=== PATIENT | female | born 1965 | race Caucasian/White ===

== ENCOUNTER 2020-01-10 10:12 | Outpatient (REF) | payer MEDICARE, MEDICAID, SELFPAY ==
[2020-01-10 23:50] LABS: Glucose Urine UA 100 MG/DL (NEG); Leukocyte Esterase Urine TRACE (NEG); Nitrite Urine POS (NEG); Specific Gravity - Urine >= 1.030 (1.005-1.025); Urine Blood NEG (NEG); Urine Ketones 5 MG/DL (NEG); Urine Protein 1+ MG/DL (NEG-TRACE)
[2020-01-11] LABS: Appearance Urine CLOUDY; Color Urine ORANGE
[2020-01-11 00:01] LABS: Bacteria Urine 4+ /LPF; Calcium Oxalate Crystals Urine 4+ /LPF; Mucus Urine 2+ /LPF; Squamous Epithelial Cell Urine 2+ /LPF
== END 2020-01-10 10:13 | disposition home or self-care (01) ==
LOC: HO.LAB 10:12
PROVIDERS: Visit Provider Internal Medicine
DX: R30.0 Dysuria (principal)
CPT/HCPCS: 81001; 81003; 87086; 87088; 87186

== ENCOUNTER 2020-03-22 12:10 | Outpatient (REF) | payer MEDICARE, MEDICAID, SELFPAY | END 2020-03-22 12:11 | disposition home or self-care (01) | LOC: HO.HOSX 12:10 | PROVIDERS: Visit Provider Orthopaedic Surgery | DX: Z13.89 Encounter for screening for other disorder (principal) ==

== ENCOUNTER 2020-03-26 10:45 | Outpatient (REF) | payer MEDICARE, MEDICAID, SELFPAY ==
--- NOTE | ~2020-03-26 | XR_ITS ---
EXAMINATION: XR KNEE STANDING, BILATERAL XR KNEE, RIGHT CLINICAL INFORMATION: Pain in right knee. COMPARISON: None TECHNIQUE: AP bilateral knee standing. Right knee 2 views. FINDINGS: AP KNEES STANDING: There is a moderate right knee genu varus deformity with severe loss of medial compartment joint space. There is moderate loss of left knee medial joint space with periarticular spurring. No loose bodies or bony erosive changes seen. There is loss of patellofemoral compartment joint space with inferior and superior spurring and anterior suprapatellar enthesophyte. No abnormal joint effusion seen. The soft tissues are normal. XR/XR knee RT 2V IMPRESSION: Severe medial compartment right knee and moderate medial compartment left knee arthritic changes with periarticular spurring. Degenerative spurring and arthritic changes patellofemoral compartment right knee without joint effusion. Genu varus deformity right knee.
--- NOTE | ~2020-03-26 | XR_ITS ---
EXAMINATION: XR KNEE STANDING, BILATERAL XR KNEE, RIGHT CLINICAL INFORMATION: Pain in right knee. COMPARISON: None TECHNIQUE: AP bilateral knee standing. Right knee 2 views. FINDINGS: AP KNEES STANDING: There is a moderate right knee genu varus deformity with severe loss of medial compartment joint space. There is moderate loss of left knee medial joint space with periarticular spurring. No loose bodies or bony erosive changes seen. There is loss of patellofemoral compartment joint space with inferior and superior spurring and anterior suprapatellar enthesophyte. No abnormal joint effusion seen. The soft tissues are normal. XR/XR knee standing BI IMPRESSION: Severe medial compartment right knee and moderate medial compartment left knee arthritic changes with periarticular spurring. Degenerative spurring and arthritic changes patellofemoral compartment right knee without joint effusion. Genu varus deformity right knee.
== END 2020-03-26 10:46 | disposition home or self-care (01) ==
LOC: HO.XRAY 10:45
PROVIDERS: PCP Internal Medicine; Visit Provider Orthopaedic Surgery
DX: M25.561 Pain in right knee (principal); M25.562 Pain in left knee; M17.0 Bilateral primary osteoarthritis of knee
CPT/HCPCS: 73560; 73565; 99202

== ENCOUNTER → 2020-04-20 09:00 | Outpatient (BNVA) | payer MEDICARE, MEDICAID, SELFPAY | PROVIDERS: Visit Provider Orthopaedic Surgery | DX: M17.0 Bilateral primary osteoarthritis of knee (principal) | CPT/HCPCS: 20610; 99212; J7318 ==

== ENCOUNTER → 2020-05-10 10:03 | Outpatient (BNVA) | payer MEDICARE, MEDICAID, SELFPAY | PROVIDERS: PCP Internal Medicine; Visit Provider Orthopaedic Surgery ==

== ENCOUNTER → 2020-09-01 10:31 | Outpatient (BNVA) | payer MEDICARE, MEDICAID, SELFPAY | PROVIDERS: Visit Provider Orthopaedic Surgery | DX: M17.0 Bilateral primary osteoarthritis of knee (principal) | CPT/HCPCS: 99212 ==

== ENCOUNTER 2021-03-04 12:35 | Emergency (ER) | payer OTHER, SELFPAY ==
--- NOTE | ~2021-03-04 | CT_ITS ---
EXAMINATION: CT HEAD WITHOUT CONTRAST CLINICAL INFORMATION: Left facial weakness since 3:00 PM yesterday COMPARISON: MRI brain 09/26/2018. TECHNIQUE: Contiguous axial imaging was performed from the skull base to vertex without intravenous administration of contrast. This CT examination was performed using dose optimization techniques as appropriate, variously including the following: *Automated exposure control *Adjustment of mA and/or kV according to patient size (this includes techniques or standardized protocols for targeted exams where dose is matched to indication/reason for exam; i.e. extremities or head) *Use of iterative reconstruction technique DLP: 651 mGy-cm FINDINGS: There is no evidence of acute intracranial hemorrhage or territorial infarction. No abnormal mass effect or midline shift is seen. Gu to white matter differentiation is well preserved. No extra-axial fluid collections are identified. The lateral ventricles are symmetrical but enlarged. There is diffuse periventricular hypodensity in both cerebral hemispheres without mass effect. Bone windows reveal no calvarial abnormality. There is no scalp soft tissue abnormality. There is diffuse mucoperiosteal thickening bilateral maxillary sinuses. Rest the paranasal sinuses and left mastoid sinus is clear. There is mild degree of periosteal thickening right mastoid sinus. No calvarial fracture or scalp abnormality seen. CT/CT head/brain wo con IMPRESSION: No acute intracranial process seen. No major change since the previous MRI brain 10/06/[address] brain 10/01/2017
[2021-03-04 12:50] VITALS: BP 114/72; PULSE 91; RESP 14; TEMP 36.8; O2SAT 97
[2021-03-04 13:00] VITALS: BP 116/80; BP 126/64; PULSE 95; PULSE 99; RESP 14; TEMP 36.8; O2SAT 95; O2SAT 97; BMI 26.5
--- NOTE | 2021-03-04 13:06 | ED.NEUROSD ---
HPI - Neuro Symptoms/Deficit General Chief Complaint: Neuro Symptoms/Deficit Stated Complaint: stroke Time Seen by Provider: 03/04/21 12:50 Source: EMS Mode of arrival: EMS Limitations: no limitations History of Present Illness HPI Narrative: 55-year-old female with a history of multiple sclerosis on interferon SQ QOD, anxiety, depression here with complaints of left sided facial droop since 3pm yesterday with inability to close her left eye. H/o MS but denies any recent flares. Followed by neurology (brandan). No baseline deficits or weakness. Uses walker or wheelchair depending on distance of ambulation. Patient tells me she recently recovered from a cold which she reports was runny nose and cough. She denies any recent travel, tick bites, history of Lyme or herpes. Related Data Home Medications Medication Instructions Recorded Confirmed dextroamphetamine-amphetamine PO 03/26/20 [Adderall] Previous Rx's Medication Instructions Recorded prednisone 20 mg tablet 60 mg PO DAILY #21 tab 03/04/21 valacyclovir 1 gram tablet 1,000 mg PO Q8H 7 Days #21 tab 03/04/21 (Valtrex) Allergies Allergy/AdvReac Type Severity Reaction Status Date / Time acetaminophen [Percocet] Allergy Unknown Unknown Verified 09/01/20 10:39 Erythromycin Allergy Unknown Unknown Verified 09/01/20 10:39 droperidol [From Inapsine] AdvReac Mild MOOD CHANGE Verified 09/01/20 10:39 erythromycin base AdvReac Mild NAUSEA Verified 09/01/20 10:39 [Erythromycin Base] oxycodone [From Percocet] AdvReac Mild VOMITING Verified 09/01/20 10:39 Review of Systems Review of Systems: Yes all other systems are reviewed and are negative Constitutional: Constitutional: Reports no additional constitutional complaints, Denies body ache(s), Denies chills, Denies fever(s), Denies headache(s) and Denies weakness Eyes: Eyes: Reports no additional eye complaints and Denies change in vision ENT: Reports system reviewed and no additional complaints, except as documented, Denies dizziness, Denies headache(s), Denies nasal congestion, Denies nasal discharge and Denies neck pain Cardiovascular: Cardiovascular: Reports no additional cardiovascular complaints, Denies chest pain, Denies leg edema and Denies dyspnea Respiratory: Respiratory: Reports no additional respiratory complaints, Denies cough and Denies dyspnea Gastrointestinal: Gastrointestinal: Reports no additional gastrointestinal complaints, Denies abdominal pain, Denies diarrhea, Denies nausea and Denies vomiting Genitourinary: Genitourinary: Reports no additional female genitourinary complaints and Denies urinary incontinence Musculoskeletal: Musculoskeletal: Reports no additional musculoskeletal complaints, Denies back pain, Denies arthralgias, Denies joint swelling, Denies neck pain, Denies numbness and Denies tingling Integumentary/Breasts: Skin/Breast: Reports system reviewed and no additional complaints, except as docu and Denies rash Neurologic: Reports system reviewed and no additional complaints, except as documented, Denies Abnormal speech present, Denies dizziness, Denies headache(s), Denies numbness, Denies tingling and Denies weakness Comments: +facial weakness PMFSH Past Medical History Attestation statement: The following information was validated with the patient. Source: old records reviewed and nursing notes reviewed Medical History Ovarian tumor Social History Social History Alcohol intake: never Patient Tobacco Use Status: Never used Tobacco Use of substances other than those prescribed or required for medical reasons: No Advance Directives: No Advance Directives Information Provided: No Current occupational status: disabled Current occupation: Right Handed Physical Exam Vital Signs: Vital Signs: Last Vital Signs Temp 98.3 F 03/04/21 13:00 Pulse 95 03/04/21 13:00 Resp 14 03/04/21 13:00 BP 126/64 03/04/21 13:00 Pulse Ox 97 03/04/21 13:00 BMI result Body Mass Index 26.5 Const: General: cooperative, healthy appearing, comfortable and no acute distress Orientation/consciousness: patient oriented x3 Limitations: no limitations HENMT: Head: Yes normal to inspection Ears: hearing grossly normal bilaterally and TM's normal bilaterally General nose exam: Normal external nose present Face and sinus: Yes normal facial exam Mouth: Normal oral and palatal mucosa present Throat: Yes posterior oropharynx normal, Yes tonsils normal and Yes uvula midline Eyes: General: appearance normal, both eyes and all related structures Pupils: Equal, round and reactive pupils present Neck: Neck: Yes normal visual inspection, Yes full ROM, Yes no lymphadenopathy and Yes no meningeal signs Chest: Chest palpation & inspection: normal inspection of the chest Resp: Effort & Inspection: normal respiratory effort Auscultation: clear to auscultation bilaterally Cardio: Rate: regular rate Rhythm: regular rhythm Peripheral pulses: Peripheral pulses 2+ throughout GI: Inspection: Yes normal to inspection Palpation (GI): Soft to palpation and nontender Auscultation: normal bowel sounds Back/Spine/Pelvis: Thoracic/Lumbar Spine: thoracic and lumbar spine normal to inspection Skin: General skin exam: no rashes or lesions noted Neuro: Other: UE 5/5 strength RLE/LLE 5/5 strength Left facial droop with inability to completely close left eye or raise eyebrow Speech is clear General: patient oriented x3, no meningeal signs, normal sensation to monofilament and Unable to assess gait Cranial nerves: Yes Equal, round and reactive pupils present, Yes Bilaterally intact EOM present and Yes Nystagmus not present Cognition (Neuro): normal cognition Speech: No Abnormal speech present Gait exam (Neuro): Unable to assess gait Sensory Exam: Normal double simultaneous stimulation for sensation Coordination: [id number] test normal Extrem: General: Yes normal to inspection Course Course Course Narrative: 55-year-old female with a history of multiple sclerosis here with reports of left-sided facial droop since 15:00 yesterday. On exam patient has left sided facial weakness with inability to close left eye and absent facial wrinkle. C/w with bells palsy. Speech is normal. UE/LE strength/sensation normal. Will check labs, CT head 1530-CT head negative, labs are unremarkable. 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 Typically the treatment of this would involve antivirals and prednisone. However as the patient is on interferon every other day I am not sure if this is contraindicated. I will discuss this with her neurologist 1600-discussed the patient with her neurologist (Brandan). It is okay to give both prednisone and acyclovir with the patient's interferon. Reviewed worrisome signs and symptoms of when to return to the emergency department. Comfortable plan for discharge home MDM - Neuro Symptoms/Deficit Medical Records Attestation: I reviewed the patient's medical records. Lab Data Attestation: I reviewed the patient's lab results. Result diagrams: 03/04/21 14:40 03/04/21 14:40 Labs: Lab Results 03/04/21 03/04/21 03/04/21 Range/Units 14:37 14:40 14:40 WBC 5.8 (4.8-10.8) X10*3/uL RBC 4.04 L (4.20-5.50) X10*6/uL Hgb 12.4 (12.0-16.0) g/dl Hct 38.6 (37.0-47.0) % MCV 95.5 (80.0-98.0) fL MCH 30.7 (27.0-33.0) pg MCHC 32.1 (31.0-35.0) g/dl RDW 12.2 (11.0-16.0) % Plt Count 222 (160-400) X10*3/uL MPV 9.3 L (9.4-12.3) fL Immature Gran % (Auto) 0.7 H (0.0-0.4) % Neut % (Auto) 70.9 (45-73) % Lymph % (Auto) 21.7 (20-40) % [place] % (Auto) 5.0 (2-11) % Eos % (Auto) 1.2 (0-4) % Baso % (Auto) 0.5 (0-2) % Lymph # (Auto) 1.3 (1.2-4.9) X10*3/uL [place] # (Auto) 0.3 (0.1-1.2) X10*3/uL Eos # (Auto) 0.1 (0.0-0.4) X10*3/uL Baso # (Auto) 0.0 (0.0-0.2) X10*3/uL Abs Immat Gran (auto) 0.04 H (0.00-0.03) X10*3/uL Absolute Neuts (auto) 4.1 (2.0-8.3) x10*3/uL Absolute Nucleated RBC 0.000 (0.0-0.012) X10*3/uL Nucleated RBC % (auto) 0.0 (0.0-0.2) /100WBC Sodium 138 (135-145) mmol/L Potassium 4.5 (3.3-5.1) mmol/L Chloride 104 (96-108) mmol/L Carbon Dioxide 24 (22-29) mmol/L Anion Gap 15 (12-20) BUN 11 (9-16) mg/dL Creatinine 0.77 (0.5-1.4) mg/dL Estim Creat Clear Calc 78.2 Estimated GFR > 60 Random Glucose 88 (60-115) mg/dL Calcium 9.2 (8.4-10.2) mg/dL Magnesium 2.3 (1.6-2.6) mg/dL Total Bilirubin 0.4 (0.0-1.0) mg/dL Direct Bilirubin 0.2 (0.0-0.5) mg/dL AST 26 (5-31) U/L ALT 16 (0-31) U/L Alkaline Phosphatase 111 (39-117) U/L Total Protein 7.5 (6.5-8.0) g/dL Albumin 3.6 (3.5-5.0) g/dL COVID-19 ([facility]) Negative (Negative) COVID-19 Clin Com See Note Imaging Data CT scan - head: Attestation: I personally reviewed and interpreted this imaging study as follows: Radiologist's impression: FINDINGS: There is no evidence of acute intracranial hemorrhage or territorial infarction. No abnormal mass effect or midline shift is seen. Gu to white matter differentiation is well preserved. No extra-axial fluid collections are identified. The lateral ventricles are symmetrical but enlarged. There is diffuse periventricular hypodensity in both cerebral hemispheres without mass effect. Bone windows reveal no calvarial abnormality. There is no scalp soft tissue abnormality. There is diffuse mucoperiosteal thickening bilateral maxillary sinuses. Rest the paranasal sinuses and left mastoid sinus is clear. There is mild degree of periosteal thickening right mastoid sinus. No calvarial fracture or scalp abnormality seen. CT/CT head/brain wo con IMPRESSION: No acute intracranial process seen. No major change since the previous MRI brain 10/06/[address] brain 10/01/2017 NIH Stroke Scale Internal: Initial- Upon Arrival Time: 13:00 Level of Consciousness: Alert Level of Consciousness Questions: Answers both questions correctly Level of Consciousness Commands: Performs both tasks correctly Best Gaze: Normal Visual: No visual loss Facial Palsy: Partial paralysis Motor Arm (Right): No drift Motor Arm (Left): No drift Motor Leg (Right): No drift Motor Leg (Left): No drift Limb Ataxia: Absent Sensory: Normal Best Language: No aphasia Dysarthia: Normal Extinction and Inattention: No abnormality Score: 2 Discharge Plan Discharge Clinical Impression: Sanz's palsy Patient Disposition: Home, Self-Care Instructions: Sanz Palsy (ED) Additional Instructions: Your lab work and CT scan are normal. This is Sanz's palsy You need to shield your eye at nighttime Buy artificial tears and applied to the eye to keep it well lubricated Take the medication with food Continue your other medications. This was discussed with your neurologist Follow-up with your neurologist in the next several weeks Prescriptions: New prednisone 20 mg tablet 60 mg PO DAILY Qty: 21 RF: 0 valacyclovir [Valtrex] 1 gram tablet 1,000 mg PO Q8H 7 Days Qty: 21 RF: 0 Referrals: Marisol Gipson MD [Physician] - 1 week Interventions: ED Discharge Assessment Last Done: 03/04/21 16:10 Discharge Date/Time: 03/04/21 16:11
--- NOTE | 2021-03-04 13:12 | PC.NURSE ---
zari palomo) at bedside, pt had slight l leg weakness noted by provider.
[2021-03-04 14:46] LABS: MANUAL DIFF FLAG NO
[2021-03-04 14:47] LABS: Basophils Percent Auto 0.5 % (0-2); Eosinophils Absolute Auto 0.1 X10*3/uL (0.0-0.4); Eosinophils Percent Auto 1.2 % (0-4); Hematocrit 38.6 % (37.0-47.0); Hemoglobin 12.4 g/dl (12.0-16.0); Imm Gran Abs Auto 0.04 X10*3/uL (0.00-0.03); Imm Gran Pct Auto 0.7 % (0.0-0.4); Lymphocytes Absolute Auto 1.3 X10*3/uL (1.2-4.9); Lymphocytes Percent Auto 21.7 % (20-40); Mean Corpuscular HGB Conc 32.1 g/dl (31.0-35.0); Mean Corpuscular Hemoglobin 30.7 pg (27.0-33.0); Mean Corpuscular Volume 95.5 fL (80.0-98.0); Mean Platelet Volume 9.3 fL (9.4-12.3); Monocytes Absolute Auto 0.3 X10*3/uL (0.1-1.2); Neutrophils Absolute Auto 4.1 x10*3/uL (2.0-8.3); Neutrophils Percent Auto 70.9 % (45-73); Platelet Count 222 X10*3/uL (160-400); Red Blood Count 4.04 X10*6/uL (4.20-5.50); Red Cell Distribution Width 12.2 % (11.0-16.0); White Blood Count 5.8 X10*3/uL (4.8-10.8)
[2021-03-04 15:08] LABS: COVID-19 Test Negative (Negative); IDNOW Serial# 9DD0AD1C
[2021-03-04 15:19] LABS: Alanine Aminotransferase 16 U/L (0-31); Albumin Level 3.6 g/dL (3.5-5.0); Alkaline Phosphatase 111 U/L (39-117); Anion Gap 15 (12-20); Aspartate Amino Transferase 26 U/L (5-31); Bilirubin Direct 0.2 mg/dL (0.0-0.5); Bilirubin Total 0.4 mg/dL (0.0-1.0); Blood Urea Nitrogen 11 mg/dL (9-16); Calcium 9.2 mg/dL (8.4-10.2); Carbon Dioxide 24 mmol/L (22-29); Chloride 104 mmol/L (96-108); Creatinine Clr Calc Pharmacy 78.2; Estimated Glomerular Filt Rate > 60; Glucose Random 88 mg/dL (60-115); Magnesium 2.3 mg/dL (1.6-2.6); Potassium 4.5 mmol/L (3.3-5.1); Sodium 138 mmol/L (135-145); Total Protein 7.5 g/dL (6.5-8.0)
[2021-03-05 20:56] LABS: Lyme Abs Screen <0.90 index
[2021-03-10 13:57] LABS: HSV 1 IgM IFA Negative (Negative); HSV 2 IgM IFA Negative (Negative)
== END 2021-03-04 16:11 | disposition home or self-care (01) ==
PROVIDERS: Nurse Practitioner Family; Emergency Provider Emergency Medicine; PCP Internal Medicine
DX: G51.0 Bell's palsy (principal); R29.702 NIHSS score 2; Z20.822 Contact with and (suspected) exposure to COVID-19; Z79.899 Other long term (current) drug therapy
CPT/HCPCS: 70450; 80048; 80076; 83735; 85025; 86617; 86618; 86695; 86696; 87635; 99284

== ENCOUNTER 2023-01-22 11:34 | Outpatient (REF) | payer MEDICARE, MEDICAID, SELFPAY ==
[2023-01-22 13:22] LABS: MANUAL DIFF FLAG NO
[2023-01-22 14:05] LABS: Appearance Urine Hazy; Basophils Absolute Auto 0.1 X10*3/uL (0.0-0.2); Basophils Percent Auto 1.1 % (0-2); Color Urine Yellow; Eosinophils Absolute Auto 0.1 X10*3/uL (0.0-0.4); Eosinophils Percent Auto 2.4 % (0-4); Glucose Urine UA Negative (Negative); Hematocrit 44.4 % (37.0-47.0); Hemoglobin 14.3 g/dl (12.0-16.0); Imm Gran Abs Auto 0.01 X10*3/uL (0.00-0.03); Imm Gran Pct Auto 0.2 % (0.0-0.4); Leukocyte Esterase Urine Trace (Negative); Lymphocytes Absolute Auto 1.5 X10*3/uL (1.2-4.9); Lymphocytes Percent Auto 31.8 % (20-40); Mean Corpuscular HGB Conc 32.2 g/dl (31.0-35.0); Mean Corpuscular Hemoglobin 30.8 pg (27.0-33.0); Mean Corpuscular Volume 95.7 fL (80.0-98.0); Mean Platelet Volume 9.6 fL (9.4-12.3); Monocytes Absolute Auto 0.3 X10*3/uL (0.1-1.2); Monocytes Percent Auto 7.1 % (2-11); Neutrophils Absolute Auto 2.7 x10*3/uL (2.0-8.3); Neutrophils Percent Auto 57.4 % (45-73); Nitrite Urine Positive (Negative); Platelet Count 198 X10*3/uL (160-400); Red Blood Count 4.64 X10*6/uL (4.20-5.50); Red Cell Distribution Width 12.3 % (11.0-16.0); Specific Gravity - Urine >= 1.030 (1.005-1.025); UMIC TRIGGER UACC YES; Urine Blood Negative (Negative); Urine Ketones Negative (Negative); Urine Protein Negative (Neg-Trace); White Blood Count 4.7 X10*3/uL (4.8-10.8)
[2023-01-22 14:30] LABS: Alanine Aminotransferase 25 U/L (0-31); Alkaline Phosphatase 61 U/L (39-117); Anion Gap 12 (12-20); Aspartate Amino Transferase 22 U/L (5-31); Bacteria Urine 4+ (None Seen); Bilirubin Total 0.3 mg/dL (0.0-1.0); Blood Urea Nitrogen 13 mg/dL (9-16); Calcium 9.7 mg/dL (8.4-10.2); Calcium Oxalate Crystals Urine Present; Carbon Dioxide 27 mmol/L (22-29); Chloride 108 mmol/L (96-108); Cholesterol 196 mg/dL (<200); Estimated Glomerular Filt Rate > 60; Glucose Random 86 mg/dL (60-115); Hyaline Casts Urine 0-2 /LPF (0-2); Potassium 3.5 mmol/L (3.3-5.1); RBC Urine >20 /HPF (0-2); Sodium 143 mmol/L (135-145); Thyroid Stimulating Hormone 4.41 uIU/mL (0.32-4.0); Total Protein 7.7 g/dL (6.5-8.0); UACC Culture Trigger YES; Vitamin D 25-OH Total 53.6 ng/mL (>30)
[2023-01-22 14:33] LABS: Vitamin B12 > 2000 pg/mL (200-900)
== END 2023-01-22 11:35 | disposition home or self-care (01) ==
LOC: HO.10HDL 11:34
PROVIDERS: Visit Provider Internal Medicine
DX: E55.9 Vitamin D deficiency, unspecified (principal); R53.83 Other fatigue; M19.90 Unspecified osteoarthritis, unspecified site; Z85.9 Personal history of malignant neoplasm, unspecified
CPT/HCPCS: 36415; 80053; 81001; 82306; 82465; 82607; 84443; 85025; 86787; 87086; 87088; 87186

== ENCOUNTER 2023-07-25 12:50 | Outpatient (REF) | payer MEDICARE, MEDICAID, SELFPAY ==
--- NOTE | ~2023-07-25 | US_ITS ---
EXAMINATION: US VENOUS ULTRASOUND WITH DOPPLER LOWER EXTREMITY, LEFT CLINICAL INFORMATION: Rule out DVT COMPARISON: None available. TECHNIQUE: Ultrasound of the deep veins is performed from the hip to the calf with compression sonography and color and pulse Doppler assessment. Spectral analysis with color-flow imaging is performed. FINDINGS: There is normal venous compression and respiratory variation and augmented flow. The visualized common femoral vein, superficial femoral vein, profunda femoral vein, popliteal vein, and the trifurcation region shows no evidence of deep venous thrombosis. There is no significant popliteal fossa cyst. If the patient's symptoms persist, followup ultrasound in 5 days 7 days might be of value to exclude proximal propagation from a non-visualized calf vein. US/US venous duplex LE LT IMPRESSION: No DVT demonstrated in the left lower extremity.
== END 2023-07-25 12:51 | disposition home or self-care (01) ==
LOC: HO.US 12:50
PROVIDERS: PCP Internal Medicine; Visit Provider Psychiatry & Neurology Neurology
DX: I82.402 Acute embolism and thrombosis of unspecified deep veins of left lower extremity (principal)
CPT/HCPCS: 93971

== ENCOUNTER 2024-06-25 10:45 | Outpatient (REF) | payer MEDICARE, MEDICAID, SELFPAY ==
--- NOTE | ~2024-06-25 | XR_ITS ---
EXAMINATION: XR TIBIA FIBULA 2 VIEWS LEFT, XR KNEE 3 VIEWS LEFT HISTORY: M79.605 - Pain in left leg COMPARISON: Comparison is made with a prior standing AP view of the left knee dated 03/26/2020. FINDINGS: Three views of the left knee and AP and lateral views of the left tibia and fibula are submitted. The examination is limited by difficulty in patient positioning. Osseous mineralization is normal. There is no fracture or dislocation. The medial and lateral compartments of the knee cannot be adequately assessed due to difficulty in patient positioning. The soft tissues are unremarkable. XR/XR tibia fibula LT 2V IMPRESSION: Limited examination due to difficulty in patient positioning. The knee joint cannot be adequately assessed. No fracture is seen. Electronically signed by: Reed Oro MD 06/25/2024 01:11 PM EDT
--- NOTE | ~2024-06-25 | XR_ITS ---
EXAMINATION: XR TIBIA FIBULA 2 VIEWS LEFT, XR KNEE 3 VIEWS LEFT HISTORY: M79.605 - Pain in left leg COMPARISON: Comparison is made with a prior standing AP view of the left knee dated 03/26/2020. FINDINGS: Three views of the left knee and AP and lateral views of the left tibia and fibula are submitted. The examination is limited by difficulty in patient positioning. Osseous mineralization is normal. There is no fracture or dislocation. The medial and lateral compartments of the knee cannot be adequately assessed due to difficulty in patient positioning. The soft tissues are unremarkable. XR/XR knee LT 3V IMPRESSION: Limited examination due to difficulty in patient positioning. The knee joint cannot be adequately assessed. No fracture is seen. Electronically signed by: Reed Oro MD 06/25/2024 01:11 PM EDT
[2024-06-25 12:17] LABS: MANUAL DIFF FLAG NO
[2024-06-25 13:11] LABS: Basophils Absolute Auto 0.1 X10*3/uL (0.0-0.2); Basophils Percent Auto 0.8 % (0-2); Eosinophils Absolute Auto 0.2 X10*3/uL (0.0-0.4); Eosinophils Percent Auto 2.6 % (0-4); Hematocrit 41.9 % (37.0-47.0); Hemoglobin 13.8 g/dl (12.0-16.0); Imm Gran Abs Auto 0.02 X10*3/uL (0.00-0.03); Imm Gran Pct Auto 0.3 % (0.0-0.4); Lymphocytes Absolute Auto 1.8 X10*3/uL (1.2-4.9); Lymphocytes Percent Auto 23.4 % (20-40); Mean Corpuscular HGB Conc 32.9 g/dl (31.0-35.0); Mean Corpuscular Hemoglobin 31.4 pg (27.0-33.0); Mean Corpuscular Volume 95.4 fL (80.0-98.0); Mean Platelet Volume 9.6 fL (9.4-12.3); Monocytes Absolute Auto 0.5 X10*3/uL (0.1-1.2); Monocytes Percent Auto 6.3 % (2-11); Neutrophils Absolute Auto 5.2 x10*3/uL (2.0-8.3); Neutrophils Percent Auto 66.6 % (45-73); Platelet Count 221 X10*3/uL (160-400); Red Blood Count 4.39 X10*6/uL (4.20-5.50); Red Cell Distribution Width 12.2 % (11.0-16.0); White Blood Count 7.8 X10*3/uL (4.8-10.8)
[2024-06-25 13:18] LABS: D Dimer High Sensitivity < 150 NG/ML
--- OUTSIDE RECORDS SUMMARY | 2024-06-25 13:18 | XMS_ITS ---
Author Organization [facility] Care Team Providers Care Home Theatre Technician Name Role Phone Clovis Ivey Unavailable Unavailable Allergies and adverse reactions Code CodeSystem Substance Reaction Severity StartDate Concern Status Percocet Unknown 02/04/2021 active 4053 RXNORM Erythromycin Unknown 02/04/2021 active Care Team Name Role Address Phone Organization Dates Clovis Ivey PCP [address] [facility], [address], [place], [address], [place] (Office): : [facility] 02/04/2021 - 02/10/2021 Immunizations Immunization Status Vaccine [...] free, 10 mcg/0.2mL dose, sammi-sucrose formulation Mfg: [employer] Step 1 of Multi-step with next step required 218 CVX created date: 02/04/2021 administered date: 05/11/2020 [employer] Covid-19 Booster (SARS-COV-2) vaccine completed SARS-COV-2 (COVID-19) vaccine, mRNA, spike protein, LNP, preservative free, 30 mcg/0.3mL dose Mfg: [employer] 208 CVX created date: 02/04/2021 administered date: 11/28/2020 Mental Status Section Date Assessment Total Score Description 02/10/2021 CAM 0 No delirium ind icated 02/09/2021 BIMS 15 cognitively int act CAM 0 No delirium ind icated PHQ-9 04 minimal depress ion Problems Problem # Description Date of onset Resolved Date Code CodeSystem Concern Status 1 ATTENTION-DEFICIT HYPERACTIVITY DISORDER, UNSPECIFIED TYPE 02/06/[address] active 2 AFTERCARE FOLLOWING JOINT REPLACEMENT SURGERY 02/04/[address] active 3 ANEMIA, UNSPECIFIED 02/04/[address] active 4 ANXIETY DISORDER, UNSPECIFIED 02/04/[address] active 5 ATTENTION-DEFICIT HYPERACTIVITY DISORDER, COMBINED TYPE 02/04/[address] active 6 DYSPHAGIA, OROPHARYNGEAL PHASE 02/04/[address] active 7 ENCOUNTER FOR OTHER ORTHOPEDIC AFTERCARE 02/04/[address] active 8 MAJOR DEPRESSIVE DISORDER, SINGLE EPISODE, UNSPECIFIED 02/04/[address] active 9 MALIGNANT NEOPLASM OF UNSPECIFIED OVARY 02/04/[address] active 10 MULTIPLE SCLEROSIS 02/04/[address] active 11 MUSCLE WASTING AND ATROPHY, NOT ELSEWHERE CLASSIFIED, MULTIPLE SITES 02/04/[address] active 12 OBESITY, UNSPECIFIED 02/04/[address] active 13 OTHER ABNORMALITIES OF GAIT AND MOBILITY 02/04/[address] active 14 OVERACTIVE BLADDER 02/04/2021 070471593 SNOMED C T active 15 PRESENCE OF RIGHT ARTIFICIAL KNEE JOINT 02/04/[address] active 16 UNILATERAL PRIMARY OSTEOARTHRITIS, RIGHT KNEE 02/04/[address] active 17 UNSPECIFIED OSTEOARTHRITIS, UNSPECIFIED SITE 02/04/[address] active Reason for Referral No Reasons for Referral Entered Social History Social History Observation Description Start Date End Date Code Code System Current Smoking Status Tobacco smoking consumption unknown [id number] SNOMED CT Sex Assigned At Female 1965 30783-7 [facility] Vital Signs Code Code System Vitals Name Values and Units Timing Information 29909-5 [facility] Pain Level Value=1.0 02/10/2021 9279-1 [facility] Respiratory Rate Value=16.0 Units=/m in 02/10/2021 8462-4 [facility] Blood Pressure-Diastolic Value=75 Un its=mmHg 02/10/2021 8480-6 [facility] Blood Pressure-Systolic Kaitu=082 Un its=mmHg 02/10/2021 8310-5 [facility] Body Temperature Value=97.7 Units=?? F 02/10/2021 8867-4 [facility] Heart rate Value=68.0 Units=/min 18913-3 [facility] O2 % BldC Oximetry Value=96.0 Units= % 02/10/2021 38090-2 LOINC Weight Vhuje=014.4 Units=Lbs 8302-2 [facility] Height Value=62.0 Units=Inches 02/05/2021
[2024-06-25 13:27] LABS: Estimated Average Glucose 114 mg/dL; Hemoglobin A1C 137.4142 umol/L; Hemoglobin A1c % 5.6 % (<6.0); Total Hemoglobin (HGBA1C) 3648.8125 umol/L
[2024-06-25 13:38] LABS: Alanine Aminotransferase 50 U/L (0-31); Albumin Level 3.8 g/dL (3.5-5.0); Alkaline Phosphatase 72 U/L (39-117); Anion Gap 10 (12-20); Bilirubin Direct 0.2 mg/dL (0.0-0.5); Bilirubin Total 0.4 mg/dL (0.0-1.0); Blood Urea Nitrogen 11 mg/dL (9-16); Calcium 9.6 mg/dL (8.4-10.2); Carbon Dioxide 27 mmol/L (22-29); Chloride 107 mmol/L (96-108); Cholesterol 191 mg/dL (<200); Estimated Glomerular Filt Rate > 60; Glucose Random 93 mg/dL (60-115); HDL Cholesterol 34 mg/dL (>40); Iron 71 mcg/dL (30-160); LDL Cholesterol Calculated 118 mg/dL (<100); Percent Iron Saturation 38 % (15-50); Potassium 3.4 mmol/L (3.3-5.1); Sodium 141 mmol/L (135-145); Total Iron Binding Capacity 188 mcg/dL (228-428); Triglycerides 197 mg/dL (<150); Unsaturated Iron Binding 117 ug/dL
[2024-06-25 13:50] LABS: Aspartate Amino Transferase 43 U/L (5-31); TSH reflex Free T4 3.31 uIU/mL (0.32-4.0)
== END 2024-06-25 10:46 | disposition home or self-care (01) ==
LOC: HO.XRAY 10:45
PROVIDERS: PCP Physician Assistant; Visit Provider Physician Assistant
DX: G35 Multiple sclerosis (principal); E55.9 Vitamin D deficiency, unspecified; F32.9 Major depressive disorder, single episode, unspecified; D50.9 Iron deficiency anemia, unspecified; M79.605 Pain in left leg; R29.6 Repeated falls; M79.89 Other specified soft tissue disorders; F90.9 Attention-deficit hyperactivity disorder, unspecified type; Z79.899 Other long term (current) drug therapy; Z13.1 Encounter for screening for diabetes mellitus; Z13.220 Encounter for screening for lipoid disorders; Z51.81 Encounter for therapeutic drug level monitoring
CPT/HCPCS: 36415; 73562; 73590; 80048; 80061; 80076; 83036; 83540; 84443; 85025; 85379; 96127; 99202

== ENCOUNTER 2024-06-25 10:45 | Outpatient (AMB) | payer MEDICARE, MEDICAID, SELFPAY ==
--- NOTE | 2024-06-25 10:46 | MHC.PC.OV ---
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 Required: No Accompanied by: Other Relationship Allergies acetaminophen [From Percocet] Adverse Reaction (Mild, Verified 06/25/24 11:00) Vomiting droperidol [From Inapsine] Adverse Reaction (Mild, Verified 06/25/24 11:00) Mood Change erythromycin base [Erythromycin Base] Adverse Reaction (Mild, Verified 06/25/24 11:00) Nausea oxycodone [From Percocet] Adverse Reaction (Mild, Verified 06/25/24 11:00) Vomiting Medication List - Last Reconciled 06/25/24 by YANCI Ivey alprazolam mg PO ascorbic acid (vitamin C) (Vitamin C) 1,000 mg PO DAILY cholecalciferol (vitamin D3) 25 mcg PO DAILY compr.stocking,knee,long,large Wear daily for lower extremity swelling. May remove at bedtime dextroamphetamine-amphetamine (Adderall) PO dextroamphetamine-amphetamine 10 mg 1 tab PO TID donepezil 5 mg PO BEDTIME ferrous sulfate 325 mg PO DAILY interferon beta-1b (Betaseron) subcut olanzapine 2.5 mg PO BEDTIME oxybutynin chloride ER 15 mg PO BID paroxetine HCl 40 mg PO DAILY sennosides-docusate sodium 8.6-50 mg (Stimulant Laxative Plus) 1 tab PO DAILY PRN venlafaxine ER 75 mg PO DAILY Tobacco use date assessed: 06/25/24 Dental Screening Dental Screen Date: 06/25/24 Did you have a dental visit in the last 12 months?: Yes Did you have a dental problem in the last 6 months where you did not have access to dental care?: No Was dental information given to patient?: Patient has dentist HPI HPI Comments History of Present Illness Details History of Present Illness The patient is a 58-year-old female presenting with lower extremity edema and complications following recent falls. She recounts a history of two falls occurring a couple of months ago, with associated leg injury resulting in significant swelling, bruising, and discomfort. The initial fall occurred in the bathroom and led to her reluctance to seek immediate evaluation due to incomplete COVID booster shot series at that time. She is primarily wheelchair bound She has a history of BLE edema that has worsened. History of venous duplex, negative for DVT. She has difficulty with leg extension limiting mobility as well as BLE weakness L>R secondary to her MS. 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 Feels this has worsened since the falls. She indicates a noted indentation on the leg, emphasizing the site of swelling. Though there was an initial ankle swelling after the first incident, it has since improved somewhat. She remains concerned due to ongoing generalized soreness of the leg as well as L knee pain. She is s/p R TKA from about 2-[address] Fermin at [facility] Her history also reveals management for Multiple Sclerosis (MS) with symptoms primarily with weakness in the BLE, L>R as well as fatigue.Follows with Dr. Gipson who is retiring, will be transitioning to Dr. Adame. Sees mentions menopause-induced symptoms following an emergency hysterectomy. Her past medical regimen includes olanzapine for menopause-associated symptoms prescribed by neurology and Adderall for uncontrollable fatigue due to MS. Review of Systems - Musculoskeletal: Reports significant swelling and soreness in the left leg post-fall, difficulty maintaining extended position, initial ankle swelling improving over time. - Neurological: Denies shortness of breath and chest pain, MS with former steroid treatments for symptom management. - General: Denies chronic swelling prior to incidents, no current pain alleviation with Tylenol, Aleve, Advil. - Dermatologic: Reports a birthmark, denies other abnormal pigmentation. - Psychiatric: Reports use of olanzapine for mood due to a forced menopause post-hysterectomy. Vital Signs Reviewed Health Maintenance - Recommended completion of booster shots. - Encouragement of taking prescribed medications for associated symptoms. Physical Exam Constitutional: Awake and alert, no apparent distress Heart: RRR, S1S2, no murmurs, no edema Lungs: CTA bilaterally, no wheezing Extremities: Significant swelling in the leg, primarily in the front, with tightness and soreness. No calf tenderness. Skin: Warm and dry, with hyperpigmentation noted as a birthmark and possible tanning lotion. Neuro: Alert and oriented x 3, lower extremity weakness predominantly on the left side. Assessment and Plan 1. Lower Extremity Edema Initiate imaging for fracture evaluation. Prior venous duplex negative for DVT. Will assess DDimer. If elevated will repeat venous duplex LLE. Recommend compression stockings and symptomatic management with ice and leg elevation. 2. Recent Fall Injuries with L lower leg pain Imaging today to assess for fractures; continue prn analgesics. Management of edema as above 3. Status Post Knee Replacement Ensure consultation with orthopedic team to determine further interventions. 4. Multiple Sclerosis Neurologist will continue to manage treatment and prescriptions, maintaining symptom control. 5. Menopause-related Symptoms Maintain current regimen provided by neurologist for symptom relief. 6. Uncontrolled Fatigue Continue Adderall therapy to mitigate MS-related fatigue; monitor effectiveness. 7. Iron-deficiency anemia Will assess CBC and iron panel. Continue ferrous sulfate 8. Mood disorder Continue olanzapine and venlafaxine and paroxetine Patient was informed and verbally consented to the use of an ambient scribe for clinic note documentation during this visit. Discussion Notes Today, I discussed the likelihood of trauma-induced edema from her recent falls. Imaging is required to inspect potential fractures. We reviewed the steps for managing swelling including compression stockings customized to her needs, elevation, and ice application. We explored her ongoing MS care under neurologist Dr. Adame, and medications have been re-prescribed. The patient is aware of follow-up recommendations, and we coordinated further evaluation across multidimensional care ? neurologic and orthopedic specialties. Patient Instructions - Elevate your leg to reduce swelling. - Apply ice for 20 minutes, then remove for 20 minutes, repeat as needed. - Obtain compression stockings from [facility]. - Complete imaging today as scheduled. - Continue prescribed medications regularly. - Follow up with your orthopedic doctor for your knee. - Review with your neurologist, Dr. Trejo, on pending appointment. - Keep a record of any changes in symptoms, particularly swelling or new pain. [facility] Medical History (Updated 06/25/24 @ 11:43 by YANCI Ivey) Osteoarthritis of right knee Neurogenic bladder Major depressive disorder Vitamin D deficiency Multiple sclerosis ADHD Iron deficiency anemia Ovarian tumor Surgical History (Updated 06/25/24 @ 13:08 by YANCI Ivey) History of total right knee replacement Family History (Updated 06/25/24 @ 11:08 by BETTYE Alvarez) Father Heart attack High blood pressure Mother No problems noted. Social History (Reviewed 06/25/24 @ 10:47 by KRISTINA Alvarez Housing: House Alcohol intake: never Patient Tobacco Use Status: Never used Tobacco service: No Current occupational status: disabled Current occupation: Right Handed Cognitive needs: No Hearing needs: No Vision needs: Yes (Rx glasses, contacts) Questionnaire PHQ-9 Over the last 2 weeks, how often have you been bothered by any of the following problems? 1. Little interest or pleasure in doing things: not at all 2. Feeling down, depressed, or hopeless: not at all 3. Trouble falling or staying asleep, or sleeping too much: not at all 4. Feeling tired or having little energy: not at all 5. Poor appetite or overeating: not at all 6. Feeling bad about yourself - or that you are a failure or have let yourself or your family down: not at all 7. Trouble concentrating on things, such as reading the newspaper or watching television: not at all 8. Moving or speaking so slowly that other people could have noticed. Or the opposite - being so fidgety or restless that you have been moving around a lot more than usual: not at all 9. Thoughts that you would be better off or of hurting yourself in some way: not at all Total score: 0 Source: Developed by Drs. Reed Spear, Heydi Malloy, Taye Sandoval and colleagues, with an educational caro from [employer]. Thrive Questionnaire Date Thrive assessed: 06/25/24 I am a: Patient What is your living situation today?: I have a steady place to live Within the past 12 months, did the food you bought not last and you didn't have the money to get more?: Never true Within the past 12 months, did you worry whether your food would run out before you got money to buy more?: Never true Do you have trouble paying for medicines?: No Do you have trouble getting transportation to medical appointments?: No Do you have trouble paying your heating and electricity bill?: No Do you have trouble taking care of your child, family member or friend?: No Do you have trouble with day-to-day activities such as bathing, preparing meals, shopping, managing finances, etc.?: No Are you currently unemployed and looking for a job?: No Are you interested in more education?: No Please select the resources that you would like help with: None THRIVE Score: 0 AUDIT C Alcohol Use Questionnaire (AUDIT-C) 1. How often do you have a drink containing alcohol?: Never Total Score: 0 FEMI-7 AMB Questionnaire FEMI-7 Date FEMI - 7 assessed: 06/25/24 Feeling nervous, anxious, or on edge: 0 = Not at all Not being able to stop or control worryin = Not at all Worrying too much about different things: 0 = Not at all Trouble relaxin = Not at all Being so restless that it is hard to sit still: 0 = Not at all Becoming easily annoyed or irritable: 0 = Not at all Feeling afraid as if something awful might happen: 0 = Not at all Total FEMI-7 score (0-4 normal; 5-9 mild; 10-14 moderate; 15-21 severe): 0 Source: Developed by Drs. Reed Spear, Heydi Malloy, Taye Sandoval and colleagues, with an educational caro from [employer]. Physical exam (Primary Care) Vital Signs: Last Vital Signs Temp 7.9 F L 06/25/24 11:08 Pulse 101 H 06/25/24 11:08 BP 110/82 06/25/24 11:08 Pulse Ox 98 06/25/24 11:08 Oxygen Delivery Method Room Air 06/25/24 11:08 Tobacco/Smoking Status: Tobacco use Status Tobacco use date assessed 06/25/24 06/25/24 10:52 Patient Tobacco Use Status Never used Tobacco 06/25/24 10:52 PHQ-9: PHQ-9 Score PHQ-9: Total score 0 06/25/24 13:04 Thrive Assessment: Date of Thrive Assessment Date Thrive assessed 06/25/24 06/25/24 10:52 Coding Level of Care Code Tele New Pt Level 4 (52873) Complex EM visit Add On G2211 Diagnoses Multiple sclerosis G35 Vitamin D deficiency E55.9 Major depressive disorder F32.9 Iron deficiency anemia D50.9 Acute pain of left lower extremity M79.605 Left leg swelling M79.89 Assessment & Plan Assessment & Plan (1) Multiple sclerosis: Code(s): G35 - Multiple sclerosis Category: Medical Plan: Continue following with Neurology. Wheelchair-bound, symptoms stable. No recent need for high-dose steroids. Can continue Adderall for ongoing management of MS related fatigue. Continue medications as prescribed by Neurology (2) Vitamin D deficiency: Code(s): E55.9 - Vitamin D deficiency, unspecified Category: Medical Plan: Vitamin-D level ordered. Continue supplementation (3) Major depressive disorder: Code(s): F32.9 - Major depressive disorder, single episode, unspecified Category: Medical Plan: Continue venlafaxine, Paxil, olanzapine. Stable (4) Iron deficiency anemia: Code(s): D50.9 - Iron deficiency anemia, unspecified Category: Medical Plan: CBC and iron panel ordered. Continue ferrous sulfate. (5) Acute pain of left lower extremity: Code(s): M79.605 - Pain in left leg Category: Medical Plan: S/p falls x2. X-ray of the L tibia/fibula and L knee ordered to evaluate for osseous abnormality. Continue analgesics prn. RICE therapy advised (6) Left leg swelling: Code(s): M79.89 - Other specified soft tissue disorders Category: Medical Plan: Suspect dependent from being wheelchair bound. Will assess renal function. DDimer also ordered, if elevated will order venous duplex LLE. Recommend compression stockings which are ordered. Also leg elevation and low sodium diet Plan Follow up in 4 months. Follow up with neurology. Refills sent to pharmacy. Complete labs and imaging following visits Orders: Orders Complete Blood Count Auto Diff Today D50.9 - Iron deficiency anemia, unspecified, F90.9 - Attention-deficit hyperactivity disorder, unspecified type, Z13.1 - Encounter for screening for diabetes mellitus, Z13.220 - Encounter for screening for lipoid disorders, Z51.81 - Encounter for therapeutic drug level monitoring XR tibia fibula LT 2V Today M79.605 - Pain in left leg XR knee LT 3V Today M79.605 - Pain in left leg, W19.XXXA - Unspecified fall, initial encounter D Dimer High Sensitivity Today M79.89 - Other specified soft tissue disorders Basic Metabolic Panel Today D50.9 - Iron deficiency anemia, unspecified, F90.9 - Attention-deficit hyperactivity disorder, unspecified type, Z13.1 - Encounter for screening for diabetes mellitus, Z13.220 - Encounter for screening for lipoid disorders, Z51.81 - Encounter for therapeutic drug level monitoring Hemoglobin A1c Today D50.9 - Iron deficiency anemia, unspecified, F90.9 - Attention-deficit hyperactivity disorder, unspecified type, Z13.1 - Encounter for screening for diabetes mellitus, Z13.220 - Encounter for screening for lipoid disorders, Z51.81 - Encounter for therapeutic drug level monitoring Liver Panel Today D50.9 - Iron deficiency anemia, unspecified, F90.9 - Attention-deficit hyperactivity disorder, unspecified type, Z13.1 - Encounter for screening for diabetes mellitus, Z13.220 - Encounter for screening for lipoid disorders, Z51.81 - Encounter for therapeutic drug level monitoring Lipid Panel Today D50.9 - Iron deficiency anemia, unspecified, F90.9 - Attention-deficit hyperactivity disorder, unspecified type, Z13.1 - Encounter for screening for diabetes mellitus, Z13.220 - Encounter for screening for lipoid disorders, Z51.81 - Encounter for therapeutic drug level monitoring IRON PROFILE Today D50.9 - Iron deficiency anemia, unspecified, F90.9 - Attention-deficit hyperactivity disorder, unspecified type, Z13.1 - Encounter for screening for diabetes mellitus, Z13.220 - Encounter for screening for lipoid disorders, Z51.81 - Encounter for therapeutic drug level monitoring TSH reflex Free T4 Today D50.9 - Iron deficiency anemia, unspecified, F90.9 - Attention-deficit hyperactivity disorder, unspecified type, Z13.1 - Encounter for screening for diabetes mellitus, Z13.220 - Encounter for screening for lipoid disorders, Z51.81 - Encounter for therapeutic drug level monitoring Medications: New compr.stocking,knee,long,large Wear daily for lower extremity swelling. May remove at bedtime 12 ea 0RF dextroamphetamine-amphetamine 10 mg 1 tab PO TID 90 tabs 0RF
[2024-06-25 11:08] VITALS: BP 110/82; PULSE 101; TEMP -13.4; TEMP 7.9; O2SAT 98
--- OUTSIDE RECORDS SUMMARY | 2024-06-25 12:05 | XMS_ITS ---
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 Name Role Phone Clovis Ivey Unavailable Unavailable Allergies and adverse reactions Code CodeSystem Substance Reaction Severity StartDate Concern Status Percocet Unknown 02/04/2021 active 4053 RXNORM Erythromycin Unknown 02/04/2021 active Care Team Name Role Address Phone Organization Dates Clovis Ivey PCP [address] [facility], [address], [place], [address], [place] (Office): : [facility] 02/04/2021 - 02/10/2021 Immunizations Immunization Status Vaccine Details Vaccine Code CodeSystem Jhon e Notes Influenza completed Influenza, split virus, trivalent, injectable, contains preservative 141 CVX created date: 02/05/2021 administered date: 12/02/2020 PCV13 (Pneumococcal Conjugate)Vaccine completed pneumococcal conjugate vaccine, 13 valent 133 CVX created date: 02/05/2021 administered date: 12/02/2020 SARS-COV-2 (COVID-19) completed SARS-COV-2 (COVID-19) vaccine, mRNA, spike protein, LNP, preservative free, 10 mcg/0.2mL dose, sammi-sucrose formulation Mfg: [employer]izer Step 2 of Multi-step with next step required 218 CVX created date: 02/04/2021 administered date: 06/01/2020 SARS-COV-2 (COVID-19) completed SARS-COV-2 (COVID-19) vaccine, mRNA, spike protein, LNP, preservative free, 10 mcg/0.2mL dose, sammi-sucrose formulation Mfg: [employer] Step 1 of Multi-step with next step required 218 CVX created date: 02/04/2021 administered date: 05/11/2020 [employer] Covid-19 Booster (SARS-COV-2) vaccine completed SARS-COV-2 (COVID-19) vaccine, mRNA, spike protein, LNP, preservative free, 30 mcg/0.3mL dose Mfg: [employer] 208 CVX created date: 02/04/2021 administered date: 11/28/2020 Mental Status Section Date Assessment Total Score Description 02/10/2021 CAM 0 No delirium ind icated 02/09/2021 BIMS 15 cognitively int act CAM 0 No delirium ind icated PHQ-9 04 minimal depress ion Problems Problem # Description Date of onset Resolved Date Code CodeSystem Concern Status 1 ATTENTION-DEFICIT HYPERACTIVITY DISORDER, UNSPECIFIED TYPE 02/06/[address] active 2 AFTERCARE FOLLOWING JOINT REPLACEMENT SURGERY 02/04/[address] active 3 ANEMIA, UNSPECIFIED 02/04/[address] active 4 ANXIETY DISORDER, UNSPECIFIED 02/04/[address] active 5 ATTENTION-DEFICIT HYPERACTIVITY DISORDER, COMBINED TYPE 02/04/[address] active 6 DYSPHAGIA, OROPHARYNGEAL PHASE 02/04/[address] active 7 ENCOUNTER FOR OTHER ORTHOPEDIC AFTERCARE 02/04/[address] active 8 MAJOR DEPRESSIVE DISORDER, SINGLE EPISODE, UNSPECIFIED 02/04/[address] active 9 MALIGNANT NEOPLASM OF UNSPECIFIED OVARY 02/04/[address] active 10 MULTIPLE SCLEROSIS 02/04/[address] active 11 MUSCLE WASTING AND ATROPHY, NOT ELSEWHERE CLASSIFIED, MULTIPLE SITES 02/04/[address] active 12 OBESITY, UNSPECIFIED 02/04/[address] active 13 OTHER ABNORMALITIES OF GAIT AND MOBILITY 02/04/[address] active 14 OVERACTIVE BLADDER 02/04/2021 888531133 SNOMED C T active 15 PRESENCE OF RIGHT ARTIFICIAL KNEE JOINT 02/04/[address] active 16 UNILATERAL PRIMARY OSTEOARTHRITIS, RIGHT KNEE 02/04/[address] active 17 UNSPECIFIED OSTEOARTHRITIS, UNSPECIFIED SITE 02/04/[address] active Reason for Referral No Reasons for Referral Entered Social History Social History Observation Description Start Date End Date Code Code System Current Smoking Status Tobacco smoking consumption unknown 813214794 SNOMED CT Sex Assigned At Female 1965 91738-[address] [facility] Vital Signs Code Code System Vitals Name Values and Units Timing Information 75785-[address] [facility] Pain Level Value=1.0 02/10/2021 9279-[address] [facility] Respiratory Rate Value=16.0 Units=/m in 02/10/2021 8462-[address] [facility] Blood Pressure-Diastolic Value=75 Un its=mmHg 02/10/2021 8480-[address] [facility] Blood Pressure-Systolic Vpfde=984 Un its=mmHg 02/10/2021 8310-[address] [facility] Body Temperature Value=97.7 Units=?? F 02/10/2021 8867-[address] [facility] Heart rate Value=68.0 Units=/min 16077-[address] [facility] O2 % BldC Oximetry Value=96.0 Units= % 02/10/2021 19185-5 LOINC Weight Buppr=974.4 Units=Lbs 8302-2 [facility] Height Value=62.0 Units=Inches 02/05/2021
== END 2024-06-25 11:45 | disposition home or self-care (01) ==
LOC: HO.HMCHD 10:45
PROVIDERS: PCP Physician Assistant; Visit Provider Physician Assistant
DX: G35 Multiple sclerosis (principal); E55.9 Vitamin D deficiency, unspecified; F32.9 Major depressive disorder, single episode, unspecified; D50.9 Iron deficiency anemia, unspecified; M79.605 Pain in left leg; M79.89 Other specified soft tissue disorders

== ENCOUNTER → 2024-06-25 12:20 | Outpatient (BNV) | payer MEDICARE, MEDICAID, SELFPAY | PROVIDERS: PCP Physician Assistant; Visit Provider Radiology Diagnostic Radiology | DX: M25.562 Pain in left knee (principal); M79.605 Pain in left leg | CPT/HCPCS: 73562; 73590 ==

== ENCOUNTER 2024-11-17 10:24 | Outpatient (REF) | payer MEDICARE, MEDICAID, SELFPAY ==
--- NOTE | ~2024-11-17 | MR_ITS ---
EXAMINATION: MR BRAIN WITHOUT AND WITH CONTRAST CLINICAL INFORMATION: Multiple sclerosis. COMPARISON: September 26, 2018. TECHNIQUE: Multiplanar, multisequence MRI of the brain was obtained before and after the intravenous administration of 10.0 mL [(Gadavist) without reported immediate complications. FINDINGS: Patient's motion artifact. Bilateral, multifocal, patchy and confluent, perpendicularly oriented to the corpus callosum, nonrestricted diffusion, nonenhancing deep periventricular white matter hyperintense T2 FLAIR signal involving centrum semiovale and diane radiata with a black hole pattern in the right and to a lesser extent left frontal diane radiata white matter. No gross signal abnormality in the infratentorial compartment. No abnormal enhancement in the intra-axial or the extra-axial compartment of the cranium. No restricted diffusion. No acute intracranial hemorrhage, mass effect, midline shift, hydrocephalus or herniation. Craniocervical junction demonstrates normal position of the cerebellar tonsils. Sellar/suprasellar region is normal. No gross signal abnormality or enhancing abnormalities in the optic pathways. Flow-void signal within the main cerebral vessels is normal. MR/MR head/brain wo/w con IMPRESSION: Extensive, nonenhancing no restricted diffusion, predominantly supratentorial compartment demyelinating plaques. Overall similar morphology and distribution pattern. Electronically signed by: Bola Orozco MD 11/17/2024 11:39 AM EDT
== END 2024-11-17 10:25 | disposition home or self-care (01) ==
LOC: HO.MRI 10:24
PROVIDERS: Visit Provider Registered Nurse
DX: G35 Multiple sclerosis (principal)
CPT/HCPCS: 70553; A9585

== ENCOUNTER → 2024-11-17 10:50 | Outpatient (BNV) | payer MEDICARE, MEDICAID, SELFPAY | PROVIDERS: Visit Provider Radiology Diagnostic Radiology | DX: G35 Multiple sclerosis (principal) | CPT/HCPCS: 70553 ==